=== PATIENT | female | born 1945 | race Caucasian/White ===

== ENCOUNTER 2016-11-28 10:06 | Day surgery (SDC) | payer OTHER ==
[~2016-11-28 10:06] MED LIST: TETRACAINE 0.5% OPHTH 1 DOSE AFFEYE ONE; VIGAMOX 0.5% OPHTH 1 DOSE AFFEYE ONE
[2016-11-28] MEDS ORDERED: VIGAMOX 0.5% OPHTH 1 DOSE AFFEYE ONE ×3 (10:10→13:59)
[2016-11-28] MEDS ORDERED: PROLENSA OPHTH 1 DOSE AFFEYE ONE (10:16)
[2016-11-28] MEDS ORDERED: ALPHAGAN-P OPHTH 1 DOSE AFFEYE ONE (10:17)
[2016-11-28] MEDS ORDERED: AK-DILATE 2.5% OPHTH 1 DOSE OP ONE ×3 (10:18→10:20)
[2016-11-28] MEDS ORDERED: CYCLOGYL 1% OPHTH 1 DOSE OP ONE ×3 (10:18→10:20)
[2016-11-28] MEDS ORDERED: MYDRIACIL OPHTH 1 DOSE AFFEYE ONE ×3 (10:18→10:20)
[2016-11-28] MEDS ORDERED: NS 500 ML IV 500 ML IV ONE (10:34)
[2016-11-28] MEDS ORDERED: TETRACAINE 0.5% OPHTH 1 DOSE AFFEYE ONE (13:40)
[2016-11-28] MEDS ORDERED: BETADINE OPHTH SOLN 5% EACHEYE ONE (13:40)
[2016-11-28] MEDS ORDERED: XYLOCAINE-MPF 1% IJ ONE (13:44)
[2016-11-28] MEDS ORDERED: BSS OPHTH (PLAIN) 500 ML with VANCOMYCIN HCL 500 MG VIAL 25 MG, ADRENALINE CHL INJ 1 MG IR ONE ×3 (13:44)
[2016-11-28] MEDS ORDERED: DUOVISC IO ONE (13:44)
[2016-11-28] MEDS ORDERED: ADRENALINE CHL INJ IJ ONE (13:44)
[2016-11-28 16:27] VITALS: BP 157/79
== END 2016-11-28 14:30 | disposition home or self-care (01) ==
LOC: SURG1 10:06
PROVIDERS: ATTEND Ophthalmology
PROC: 08RK3JZ Replacement of Left Lens with Synthetic Substitute, Percutaneous Approach (ICD-10-PCS; principal; 2016-11-28 20:15)
PROC: 08DK3ZZ Extraction of Left Lens, Percutaneous Approach (ICD-10-PCS; principal; 2016-11-28 20:15)
DX: H25.12 Age-related nuclear cataract, left eye (principal); H25.012 Cortical age-related cataract, left eye; H25.042 Posterior subcapsular polar age-related cataract, left eye; H52.222 Regular astigmatism, left eye
CPT/HCPCS: 99100; A9270; A4217; J0170; J3370

== ENCOUNTER 2016-12-12 07:43 | Day surgery (SDC) | payer OTHER ==
[2016-12-12] MEDS ORDERED: NS 500 ML IV 500 ML IV ONE (08:24)
[2016-12-12] MEDS ORDERED: TETRACAINE 0.5% OPHTH 1 DOSE AFFEYE ONE ×2 (08:30→10:56)
[2016-12-12] MEDS ORDERED: CYCLOGYL 1% OPHTH 1 DOSE OP ONE ×4 (08:30→08:42)
[2016-12-12] MEDS ORDERED: AK-DILATE 2.5% OPHTH 1 DOSE OP ONE ×4 (08:30→08:42)
[2016-12-12] MEDS ORDERED: MYDRIACIL OPHTH 1 DOSE AFFEYE ONE ×4 (08:30→08:42)
[2016-12-12] MEDS ORDERED: VIGAMOX 0.5% OPHTH 1 DOSE AFFEYE ONE ×5 (08:32→11:32)
[2016-12-12] MEDS ORDERED: PROLENSA OPHTH 1 DOSE AFFEYE ONE (08:35)
[2016-12-12] MEDS ORDERED: ALPHAGAN-P OPHTH 1 DOSE AFFEYE ONE (08:37)
[2016-12-12] MEDS ORDERED: DIAMOX PO ONE (10:36)
[2016-12-12] MEDS ORDERED: BETADINE OPHTH SOLN 5% EACHEYE ONE (10:56)
[2016-12-12] MEDS ORDERED: BSS OPHTH (PLAIN) 500 ML with VANCOMYCIN HCL 500 MG VIAL 25 MG, ADRENALINE CHL INJ 1 MG IR ONE ×3 (11:12)
[2016-12-12] MEDS ORDERED: XYLOCAINE-MPF 1% IJ ONE (11:12)
[2016-12-12] MEDS ORDERED: DUOVISC IO ONE (11:12)
[2016-12-12] MEDS ORDERED: ADRENALINE CHL INJ IJ ONE (11:12)
[2016-12-12] MEDS ORDERED: VISCOAT 0.5 ML IO ONE (11:25)
[2016-12-12 11:56] VITALS: BP 146/72
== END 2016-12-12 12:00 | disposition home or self-care (01) ==
LOC: SURG1 07:43
PROVIDERS: ATTEND Ophthalmology
PROC: 08DJ3ZZ Extraction of Right Lens, Percutaneous Approach (ICD-10-PCS; principal; 2016-12-12 10:45)
PROC: 08RJ3JZ Replacement of Right Lens with Synthetic Substitute, Percutaneous Approach (ICD-10-PCS; principal; 2016-12-12 10:45)
DX: H25.11 Age-related nuclear cataract, right eye (principal); H25.041 Posterior subcapsular polar age-related cataract, right eye; H52.221 Regular astigmatism, right eye
CPT/HCPCS: 99100; A9270; A4217; J0170; J3370

== ENCOUNTER 2017-11-05 12:30 | Inpatient (IN) | payer OTHER ==
[2017-11-05] MEDS ORDERED: TUSSIONEX PENNKINETIC SUSP PO PRN (13:36)
[2017-11-05] MEDS ORDERED: DUONEB 0.5 MG/3 MG ONE (13:37)
[2017-11-05] MEDS: DUONEB 0.5 MG/3 MG NEB SCH ×3 (13:45→20:28)
[2017-11-05] MEDS ORDERED: SALINE 3% 15 ML NEB TX NEB ONE (13:46)
--- NOTE | 2017-11-05 14:32 | RAD ---
History: Pneumonia Study: PA and lateral chest Comparison: CT chest dated December 02, 2015 Findings: The heart size is normal with intact pacemaker wire leads via the left subclavian vein. The lungs appear clear. There is no effusion or atelectasis or consolidation. Impression: No evidence for active cardiopulmonary disease Reported By:
[2017-11-05 14:33] LABS: BASOPHILS % (AUTO) 0.6 % (0.2-1.0); EOSINOPHILS % (AUTO) 0.1 % (0.9-2.9); HEMATOCRIT 42.8 % (36.0-47.0); HEMOGLOBIN 14.9 g/dL (12.0-16.0); LYMPHOCYTES # (AUTO) 2.3 X10^3/uL (1.3-2.9); LYMPHOCYTES % (AUTO) 34.7 % (21.0-51.0); MEAN CORPUSCULAR HGB CONC 34.8 g/dL (33.0-35.0); MEAN CORPUSCULAR VOLUME 80.5 fL (80.0-100.0); MEAN PLATELET VOLUME 9.6 fL (7.4-11.0); MONOCYTES # (AUTO) 0.7 x10^3/uL (0.3-0.8); MONOCYTES % (AUTO) 11.1 % (0.0-13.0); NEUTROPHILS # (AUTO) 3.6 x10^3/uL (2.2-4.8); NEUTROPHILS % (AUTO) 53.5 % (42.0-75.0); PLATELET COUNT 219 X10^3/uL (150.0-450.0); RED BLOOD COUNT 5.32 X10^6/uL (3.5-5.4); RED CELL DISTRIBUTION WIDTH 14.3 % (11.6-16.5); WHITE BLOOD COUNT 6.7 X10^3/uL (3.6-10.0)
[2017-11-05 14:51] LABS: ALANINE AMINOTRANSFERASE 25 Units/L (12-78); ALBUMIN 3.9 g/dL (3.4-5.0); ALKALINE PHOSPHATASE 69 Units/L (46-116); ASPARTATE AMINO TRANSFERASE 30 Units/L (15-37); BLOOD UREA NITROGEN 15 mg/dL (7-18); CALCIUM 8.5 mg/dL (8.5-10.1); CARBON DIOXIDE 30.2 mmol/L (21-32); CHLORIDE 98 mmol/L (98-107); COR NA(FOR HYPERGLY) 137 mmol/L (136-145); CREATININE 0.91 mg/dL (0.55-1.02); SODIUM 137 mmol/L (136-145); TOTAL PROTEIN 7.9 g/dL (6.4-8.2); eGFR BLACK RACES > 60 (>60); eGFR NON BLACK RACES > 60 (>60)
[2017-11-05] MEDS ORDERED: K-LYTE EFFERVESCENT PO PRN (15:00)
[2017-11-05] MEDS ORDERED: POTASSIUM CHL 40 MEQ/NS 0.45% 500 ML IV PRN (15:00)
[2017-11-05] MEDS ORDERED: K-RIDER 10 MEQ/NS 100 ML 10 MEQ/100 ML BAG IV PRN (15:00)
[2017-11-05] MEDS ORDERED: MAGNESIUM SULFATE 1 GM/100 mL PREMIX 1 GM/100 ML BAG IV PRN (15:00)
[2017-11-05] MEDS ORDERED: MAG-OX TAB PO PRN (15:00)
[2017-11-05] MEDS ORDERED: POTASSIUM CHL 60 MEQ/NS 0.45% 500 ML IV PRN (15:00)
[2017-11-05] MEDS ORDERED: NS 1/2 1000 ML IV 1,000 ML IV ONE (15:19)
[2017-11-05] MEDS: NS 1/2 1000 ML IV 1,000 ML IV SCH (15:31)
[2017-11-05] MEDS: LEVAQUIN PREMIX IV 750 MG 750 MG/150 ML BAG IV SCH (15:32)
[2017-11-05] MEDS: ROBITUSSIN DM PO SCH ×3 (15:32→21:00)
[2017-11-05 17:22] VITALS: BMI 21.7
[2017-11-05] MEDS: NORVASC TAB 10 MG PO SCH (17:25)
[2017-11-05] MEDS: ZOFRAN INJ 4 MG VIAL IVP PRN (18:05)
[2017-11-05] MEDS: TYLENOL 325 MG TAB PO PRN (18:06)
[2017-11-05] MEDS: POTASSIUM CHLORIDE LIQ 20 MEQ UDC PO PRN ×2 (20:23→22:25)
[2017-11-05] MEDS: ZANTAC PO SCH (21:00)
[2017-11-06] MEDS: DUONEB 0.5 MG/3 MG NEB SCH ×6 (00:47→23:38)
[2017-11-06] MEDS: TYLENOL 325 MG TAB PO PRN ×3 (02:11→20:28)
[2017-11-06] MEDS: NS 1/2 1000 ML IV 1,000 ML IV SCH ×2 (04:00→17:12)
[2017-11-06] MEDS ORDERED: NS 1/2 1000 ML IV 1,000 ML IV ONE ×2 (04:05→18:56)
[2017-11-06 05:45] LABS: BASOPHILS % (AUTO) 0.3 % (0.2-1.0); EOSINOPHILS % (AUTO) 0.1 % (0.9-2.9); HEMATOCRIT 37.2 % (36.0-47.0); HEMOGLOBIN 13.2 g/dL (12.0-16.0); LYMPHOCYTES # (AUTO) 1.1 X10^3/uL (1.3-2.9); MEAN CORPUSCULAR HEMOGLOBIN 28.5 pg (27.0-34.0); MEAN CORPUSCULAR HGB CONC 35.4 g/dL (33.0-35.0); MEAN CORPUSCULAR VOLUME 80.5 fL (80.0-100.0); MEAN PLATELET VOLUME 9.6 fL (7.4-11.0); MONOCYTES # (AUTO) 0.5 x10^3/uL (0.3-0.8); MONOCYTES % (AUTO) 13.1 % (0.0-13.0); NEUTROPHILS # (AUTO) 2.5 x10^3/uL (2.2-4.8); NEUTROPHILS % (AUTO) 59.5 % (42.0-75.0); PLATELET COUNT 184 X10^3/uL (150.0-450.0); RED BLOOD COUNT 4.63 X10^6/uL (3.5-5.4); RED CELL DISTRIBUTION WIDTH 14.1 % (11.6-16.5); WHITE BLOOD COUNT 4.1 X10^3/uL (3.6-10.0)
[2017-11-06 05:49] LABS: ALANINE AMINOTRANSFERASE 45 Units/L (12-78); ALBUMIN 3.1 g/dL (3.4-5.0); ALKALINE PHOSPHATASE 55 Units/L (46-116); ASPARTATE AMINO TRANSFERASE 34 Units/L (15-37); BLOOD UREA NITROGEN 10 mg/dL (7-18); CALCIUM 7.9 mg/dL (8.5-10.1); CARBON DIOXIDE 28.2 mmol/L (21-32); CHLORIDE 104 mmol/L (98-107); COR CA(FOR HYPOALB) 8.6 mg/dL (8.5-10.1); COR NA(FOR HYPERGLY) 141 mmol/L (136-145); SODIUM 140 mmol/L (136-145); TOTAL PROTEIN 6.6 g/dL (6.4-8.2); eGFR BLACK RACES > 60 (>60); eGFR NON BLACK RACES > 60 (>60)
--- NOTE | 2017-11-06 06:32 | RAD ---
HISTORY: Follow-up pneumonia Study: Chest AP portable Comparison: 11/05/2017 Findings: There is a pacemaker present on the left obscuring a portion of the left mid lung. The heart is mildl y enlarged. No congestive heart failure is noted. The aorta is calcified and mildly ectatic. The lung freitas are clear. No pleural effusions are identified. The bony thorax is unremarkable. IMPRESSION: Mild cardiomegaly without congestive heart failure No infiltrates Reported By:
--- NOTE | 2017-11-06 09:55 | DR.UPDATE ---
H&P Update History and Physical Update: WAS SEEN IN THE OFFICE ON 11/05/17. A H&P WAS COMPLETED PRIOR TO ADMISSION. PATIENT HAS BEEN SEEN AND EXAMINED WITH NO CHANGES NOTED TO H&P. Changes noted: NO Yes with the following:
[2017-11-06] MEDS: ROBITUSSIN DM PO SCH ×4 (10:14→20:27)
[2017-11-06] MEDS: NORVASC TAB 10 MG PO SCH (10:14)
[2017-11-06] MEDS: LEVAQUIN PREMIX IV 750 MG 750 MG/150 ML BAG IV SCH (10:14)
[2017-11-06] MEDS: ZOFRAN INJ 4 MG VIAL IVP PRN (12:17)
[2017-11-06] MEDS: HYDROCHLOROTHIAZIDE 25 MG TAB PO SCH (12:20)
[2017-11-06] MEDS: PROTONIX TAB 40 MG PO SCH (12:20)
--- NOTE | 2017-11-06 12:34 | PCM.PROG ---
Progress Note - Progress Note for Day of Date: 11/06/17 - Subjective Subjective: WAS ADMITTED YESTERDAY AND IS BEING TREATED FOR BRONCHOPNEUMONIA. TODAY, SHE IS ALERT AND ORIENTED, LYING IN BED ON MORNING ROUNDS. SHE CONTINUES WITH COMPLAINTS OF NON-PRODUCTIVE COUGH AND SHORTNESS OF BREATH. ON EXAMINATION, HEART IS REGULAR IN RATE AND RHYTHM. BILATERAL LUNGS ARE NOTED WITH SCATTERED WHEEZING. SHE IS CURRENTLY UTILIZING NASAL CANNULA AT 2L/MIN. ABDOMEN IS ROUND, SOFT, AND NON-TENDER WITH NORMAL BOWEL SOUNDS NOTED IN ALL QUADRNTS. HER VITALS THIS MORNING ARE 97.6-80-18-96%-133/72. LABS WERE OBTAINED THIS MORNING. POTASSIUM IS 3.2, OTHERWISE, SHE IS HEMODYNAMICALLY STABLE. A CHEST XRAY WAS OBTAINED THIS MORNING AND REPORTS MILD CARDIOMEGALY WITHOUT CONGESTIVE HEART FAILURE. NO INFILRATES. TODAY, WE WILL CONTINUE WITH CURRENT PLAN OF CARE WITH IV ANTIBIOTICS AND RESPIRATORY TREATMENTS. OTHERWISE, WE WILL FOLLOW UP WITH AM LABS AND CHEST XRAY AND CONTINUE TO MONITOR PATIENT. - Past Medical Family Social History Past Med/Fam/Surg Hx: No changes since H&P Allergies: Allergies cefdinir [From Omnicef] Allergy (Verified 11/05/17 12:34) sulfamethoxazole [From Bactrim] Allergy (Verified 11/05/17 12:34) trimethoprim [From Bactrim] Allergy (Verified 11/05/17 12:34) - Review of Systems ROS: No change since H&P - Vital Signs and I&O's Vital Signs: Temperature 97.6 F Pulse Rate [Brachial] 80 Pulse Rate 83 Respiratory Rate 18 Blood Pressure [Right Arm] 133/72 Blood Pressure 146/72 O2 Sat by Pulse Oximetry 97 Intake and Output: Intake & Output 11/04/17 11/05/17 11/06/17 11/07/17 11:59 11:59 11:59 11:59 Intake Total 1875 Balance 1875 - Physical Exam Oriented: Normal Eyes: Normal Ear: Normal Nose: Normal Throat: Normal Respiratory: Right, Left, Generalized, Wheezes Cardiovascular: Normal. negative: S3, S4, Murmur : Normal Auscultation: Bowel Sounds: Normal Palpation: Normal Tenderness: Normal Skin: Normal Musculoskeletal: Normal Psychiatric: Normal Mood Description: Calm Affect: Normal Speech Pattern: Clear, Appropriate - Laboratory and Diagnostics Result Diagrams: 11/06/17 04:05 11/06/17 08:42 Labs: Laboratory WBC 4.1 X10^3/uL (3.6-10.0) 11/06/17 04:05 RBC 4.63 X10^6/uL (3.5-5.4) 11/06/17 04:05 Hgb 13.2 g/dL (12.0-16.0) 11/06/17 04:05 Hct 37.2 % (36.0-47.0) 11/06/17 04:05 MCV 80.5 fL (80.0-100.0) 11/06/17 04:05 MCH 28.5 pg (27.0-34.0) 11/06/17 04:05 MCHC 35.4 g/dL (33.0-35.0) H 11/06/17 04:05 RDW 14.1 % (11.6-16.5) 11/06/17 04:05 Plt Count 184 X10^3/uL (150.0-450.0) 11/06/17 04:05 MPV 9.6 fL (7.4-11.0) 11/06/17 04:05 Neut % 59.5 % (42.0-75.0) 11/06/17 04:05 Lymph % 27.0 % (21.0-51.0) 11/06/17 04:05 [place] % 13.1 % (0.0-13.0) H 11/06/17 04:05 Eos % 0.1 % (0.9-2.9) L 11/06/17 04:05 Baso % 0.3 % (0.2-1.0) 11/06/17 04:05 Neut # 2.5 x10^3/uL (2.2-4.8) 11/06/17 04:05 Lymph # 1.1 X10^3/uL (1.3-2.9) L 11/06/17 04:05 [place] # 0.5 x10^3/uL (0.3-0.8) 11/06/17 04:05 Eos # 0.0 x10^3/uL (0.0-0.2) 11/06/17 04:05 Baso # 0.0 X10^3/uL (0.0-0.1) 11/06/17 04:05 Absolute Nucleated RBC 0.3 /100WBC 11/06/17 04:05 Sodium 140 mmol/L (136-145) 11/06/17 05:05 Corrected Sodium 141 mmol/L (136-145) 11/06/17 05:05 Potassium 3.8 mmol/L (3.5-5.1) 11/06/17 08:42 Chloride 104 mmol/L (98-107) 11/06/17 05:05 Carbon Dioxide 28.2 mmol/L (21-32) 11/06/17 05:05 BUN 10 mg/dL (7-18) 11/06/17 05:05 Creatinine 0.80 mg/dL (0.55-1.02) 11/06/17 05:05 Est GFR (MDRD) Af Amer > 60 (>60) 11/06/17 05:05 Est GFR (MDRD) Non-Af > 60 (>60) 11/06/17 05:05 Glucose 132 mg/dL (65-99) H 11/06/17 05:05 Calcium 7.9 mg/dL (8.5-10.1) L 11/06/17 05:05 Corrected Calcium 8.6 mg/dL (8.5-10.1) 11/06/17 05:05 Magnesium 1.9 mg/dL (1.7-2.9) 11/05/17 14:10 Total Bilirubin 0.30 mg/dL (0.2-1.0) 11/06/17 05:05 AST 34 Units/L (15-37) 11/06/17 05:05 ALT 45 Units/L (12-78) 11/06/17 05:05 Alkaline Phosphatase 55 Units/L (46-116) 11/06/17 05:05 Total Protein 6.6 g/dL (6.4-8.2) 11/06/17 05:05 Albumin 3.1 g/dL (3.4-5.0) L 11/06/17 05:05 Globulin 3.5 g/dL (2.5-4.5) 11/06/17 05:05 Albumin/Globulin Ratio 0.9 Ratio (1.1-2.1) L 11/06/17 05:05 - Plan (1) Bronchopneumonia Status: Acute Plan: CONTINUE LEVAQUIN, CONTINUE RESPIRATORY TREATMENTS AND SUPPLEMENTAL OXYGEN , CONTINUE TO MONITOR
[2017-11-06] MEDS: ZANTAC PO SCH (20:27)
[2017-11-07] MEDS: DUONEB 0.5 MG/3 MG NEB SCH ×5 (01:20→18:33)
[2017-11-07] MEDS ORDERED: NS 1/2 1000 ML IV 1,000 ML IV ONE ×2 (04:26→22:09)
[2017-11-07 06:10] LABS: BASOPHILS % (AUTO) 0.4 % (0.2-1.0); EOSINOPHILS % (AUTO) 1.1 % (0.9-2.9); HEMATOCRIT 38.3 % (36.0-47.0); HEMOGLOBIN 13.3 g/dL (12.0-16.0); LYMPHOCYTES # (AUTO) 1.2 X10^3/uL (1.3-2.9); LYMPHOCYTES % (AUTO) 34.8 % (21.0-51.0); MEAN CORPUSCULAR HGB CONC 34.8 g/dL (33.0-35.0); MEAN CORPUSCULAR VOLUME 80.4 fL (80.0-100.0); MEAN PLATELET VOLUME 9.6 fL (7.4-11.0); MONOCYTES # (AUTO) 0.4 x10^3/uL (0.3-0.8); MONOCYTES % (AUTO) 13.2 % (0.0-13.0); NEUTROPHILS # (AUTO) 1.7 x10^3/uL (2.2-4.8); NEUTROPHILS % (AUTO) 50.5 % (42.0-75.0); PLATELET COUNT 157 X10^3/uL (150.0-450.0); RED BLOOD COUNT 4.77 X10^6/uL (3.5-5.4); RED CELL DISTRIBUTION WIDTH 14.3 % (11.6-16.5); WHITE BLOOD COUNT 3.4 X10^3/uL (3.6-10.0)
[2017-11-07 06:38] LABS: ALANINE AMINOTRANSFERASE 44 Units/L (12-78); ALBUMIN 3.1 g/dL (3.4-5.0); ALKALINE PHOSPHATASE 58 Units/L (46-116); ASPARTATE AMINO TRANSFERASE 29 Units/L (15-37); BLOOD UREA NITROGEN 10 mg/dL (7-18); CALCIUM 8.2 mg/dL (8.5-10.1); CARBON DIOXIDE 29.4 mmol/L (21-32); CHLORIDE 104 mmol/L (98-107); COR CA(FOR HYPOALB) 8.9 mg/dL (8.5-10.1); CREATININE 0.77 mg/dL (0.55-1.02); SODIUM 142 mmol/L (136-145); TOTAL PROTEIN 6.5 g/dL (6.4-8.2); eGFR BLACK RACES > 60 (>60); eGFR NON BLACK RACES > 60 (>60)
--- NOTE | 2017-11-07 07:13 | RAD ---
AP chest Indication: Follow-up pneumonia. Comparison: 11/06/2017. Findings: Trachea is midline. Heart size and borderline enlarged, unchanged. Stable positioning of le ft chest wall pacemaker. Chronic interstitial lung changes persist. There is no focal airspace opacit y, pleural effusion or pneumothorax. No acute osseous abnormality. Impression: Chronic interstitial lung changes without acute airspace disease or CHF. Reported By:
[2017-11-07] MEDS: TYLENOL 325 MG TAB PO PRN ×2 (07:59→17:29)
[2017-11-07] MEDS: ROBITUSSIN DM PO SCH ×4 (08:01→20:30)
[2017-11-07] MEDS: NS 1/2 1000 ML IV 1,000 ML IV SCH (08:01)
[2017-11-07] MEDS: NORVASC TAB 10 MG PO SCH (08:01)
[2017-11-07] MEDS: HYDROCHLOROTHIAZIDE 25 MG TAB PO SCH (08:01)
[2017-11-07] MEDS: LEVAQUIN PREMIX IV 750 MG 750 MG/150 ML BAG IV SCH (08:01)
[2017-11-07] MEDS: PROTONIX TAB 40 MG PO SCH (08:01)
[2017-11-07] MEDS ORDERED: PERCOCET TAB 5/325 MG PO PRN (10:15)
[2017-11-07] MEDS: TAMIFLU PO SCH ×2 (11:57→20:29)
[2017-11-07] MEDS: ZANTAC PO SCH (20:29)
[2017-11-08] MEDS: DUONEB 0.5 MG/3 MG NEB SCH ×5 (01:20→12:22)
[2017-11-08] MEDS: ZOFRAN INJ 4 MG VIAL IVP PRN (06:05)
[2017-11-08 06:14] LABS: BASOPHILS % (AUTO) 0.4 % (0.2-1.0); EOSINOPHILS # (AUTO) 0.1 x10^3/uL (0.0-0.2); EOSINOPHILS % (AUTO) 1.6 % (0.9-2.9); HEMATOCRIT 36.8 % (36.0-47.0); HEMOGLOBIN 12.8 g/dL (12.0-16.0); LYMPHOCYTES # (AUTO) 1.4 X10^3/uL (1.3-2.9); LYMPHOCYTES % (AUTO) 36.5 % (21.0-51.0); MEAN CORPUSCULAR HGB CONC 34.8 g/dL (33.0-35.0); MEAN CORPUSCULAR VOLUME 80.4 fL (80.0-100.0); MONOCYTES # (AUTO) 0.4 x10^3/uL (0.3-0.8); NEUTROPHILS % (AUTO) 51.5 % (42.0-75.0); PLATELET COUNT 180 X10^3/uL (150.0-450.0); RED BLOOD COUNT 4.58 X10^6/uL (3.5-5.4); RED CELL DISTRIBUTION WIDTH 14.1 % (11.6-16.5); WHITE BLOOD COUNT 3.9 X10^3/uL (3.6-10.0)
[2017-11-08 06:38] LABS: ALANINE AMINOTRANSFERASE 47 Units/L (12-78); ALBUMIN 3.1 g/dL (3.4-5.0); ALKALINE PHOSPHATASE 67 Units/L (46-116); ASPARTATE AMINO TRANSFERASE 30 Units/L (15-37); BLOOD UREA NITROGEN 10 mg/dL (7-18); CALCIUM 8.2 mg/dL (8.5-10.1); CARBON DIOXIDE 28.7 mmol/L (21-32); CHLORIDE 101 mmol/L (98-107); COR CA(FOR HYPOALB) 8.9 mg/dL (8.5-10.1); CREATININE 0.78 mg/dL (0.55-1.02); SODIUM 140 mmol/L (136-145); TOTAL PROTEIN 6.5 g/dL (6.4-8.2); eGFR BLACK RACES > 60 (>60); eGFR NON BLACK RACES > 60 (>60)
--- NOTE | 2017-11-08 06:59 | RAD ---
HISTORY: Follow-up pneumonia Study: Chest AP portable Comparison: 11/07/2017 Findings: There is a pacemaker present on the left obscuring a portion of the left mid lung. The heart is withi n normal limits in size. The julia are normal. The aorta is calcified. The lungs are free of acute faisal eolar infiltrates. No pleural effusions are identified. Minimal interstitial lung disease is present. IMPRESSION: No acute alveolar infiltrates Minimal interstitial lung disease, stable Reported By:
[2017-11-08] MEDS: PROTONIX TAB 40 MG PO SCH (10:05)
[2017-11-08] MEDS: ROBITUSSIN DM PO SCH ×2 (10:05→14:30)
[2017-11-08] MEDS: HYDROCHLOROTHIAZIDE 25 MG TAB PO SCH (10:05)
[2017-11-08] MEDS: POTASSIUM CHLORIDE LIQ 20 MEQ UDC PO PRN (10:05)
[2017-11-08] MEDS: TAMIFLU PO SCH (10:05)
[2017-11-08] MEDS: NORVASC TAB 10 MG PO SCH (10:05)
[2017-11-08] MEDS: LEVAQUIN PREMIX IV 750 MG 750 MG/150 ML BAG IV SCH (10:06)
[2017-11-08 16:14] VITALS: BP 119/69
== END 2017-11-08 15:25 | disposition home or self-care (01) | DRG 195 ==
LOC: ICU 12:30 → UNDOADMIN 12:30 → ICU 13:16 → MED/SURG 11-06 08:08 → OBS 11-07 16:12 → MED/SURG 11-07 16:14
PROVIDERS: ADMIT Internal Medicine; ATTEND Internal Medicine
DX: J18.0 Bronchopneumonia, unspecified organism (principal); J10.1 Influenza due to other identified influenza virus with other respiratory manifestations; R50.9 Fever, unspecified; R06.02 Shortness of breath; I51.7 Cardiomegaly
CPT/HCPCS: 36415; 71045; 71046; 80053; 83735; 84132; 85025; 87040; 87502; 94640; A4222; G9035; J1956; J2405; J7620

== ENCOUNTER 2019-01-09 13:59 | Observation (INO) ==
[2019-01-09] MEDS ORDERED: NS 1000 ML 1,000 ML ONE (15:42)
[2019-01-09 16:23] VITALS: BMI 20.7
[2019-01-09] MEDS: NS 1000 ML 1,000 ML IV SCH (16:25)
[2019-01-09] MEDS: PROTONIX TAB 40 MG PO SCH (16:34)
[2019-01-09] MEDS: NORVASC TAB 10 MG PO SCH (16:34)
[2019-01-09] MEDS: ASPIRIN EC 81 MG PO SCH (16:34)
[2019-01-09 16:35] LABS: BASOPHILS # (AUTO) 0.1 X10^3/uL (0.0-0.1); BASOPHILS % (AUTO) 0.8 % (0.2-1.0); EOSINOPHILS # (AUTO) 0.1 x10^3/uL (0.0-0.2); EOSINOPHILS % (AUTO) 1.5 % (0.9-2.9); HEMATOCRIT 39.9 % (36.0-47.0); HEMOGLOBIN 13.6 g/dL (12.0-16.0); LYMPHOCYTES # (AUTO) 1.6 X10^3/uL (1.3-2.9); LYMPHOCYTES % (AUTO) 17.5 % (21.0-51.0); MEAN CORPUSCULAR HEMOGLOBIN 27.6 pg (27.0-34.0); MEAN CORPUSCULAR VOLUME 81.1 fL (80.0-100.0); MONOCYTES # (AUTO) 0.5 x10^3/uL (0.3-0.8); MONOCYTES % (AUTO) 6.1 % (0.0-13.0); NEUTROPHILS # (AUTO) 6.6 x10^3/uL (2.2-4.8); NEUTROPHILS % (AUTO) 74.1 % (42.0-75.0); PLATELET COUNT 248 X10^3/uL (150.0-450.0); RED BLOOD COUNT 4.92 X10^6/uL (3.5-5.4); RED CELL DISTRIBUTION WIDTH 14.3 % (11.6-16.5); WHITE BLOOD COUNT 8.9 X10^3/uL (3.6-10.0)
[2019-01-09 17:06] LABS: ALANINE AMINOTRANSFERASE 24 Units/L (12-78); ALKALINE PHOSPHATASE 76 Units/L (46-116); ASPARTATE AMINO TRANSFERASE 18 Units/L (15-37); BLOOD UREA NITROGEN 17 mg/dL (7-18); CALCIUM 9.3 mg/dL (8.5-10.1); CARBON DIOXIDE 30.1 mmol/L (21-32); CHLORIDE 102 mmol/L (98-107); CKMB % 1.6 % (<4); CREATINE KINASE 61 Units/L (26-192); CREATINE KINASE MB < 1.0 ng/mL (0-4.0); CREATININE 0.74 mg/dL (0.55-1.02); SODIUM 141 mmol/L (136-145); TOTAL PROTEIN 7.3 g/dL (6.4-8.2); TROPONIN I < 0.02 ng/mL (0-1.5); eGFR NON BLACK RACES > 60 (>60)
[2019-01-09] MEDS ORDERED: NS 100 ML IV 100 ML ONE (17:14)
[2019-01-09] MEDS ORDERED: MICRO K EXTEN CAP 10 MEQ PO PRN ×2 (18:07→18:11)
[2019-01-09] MEDS ORDERED: POTASSIUM CHL 60 MEQ/NS 0.45% 500 ML IV PRN ×2 (18:07→18:11)
[2019-01-09] MEDS ORDERED: K-RIDER 10 MEQ/NS 100 ML 10 MEQ/100 ML BAG IV PRN ×2 (18:07→18:11)
[2019-01-09] MEDS ORDERED: POTASSIUM CHL 40 MEQ/NS 0.45% 500 ML IV PRN ×2 (18:07→18:11)
[2019-01-09] MEDS ORDERED: POTASSIUM CHLORIDE LIQ 20 MEQ UDC PO PRN ×2 (18:07→18:11)
[2019-01-09] MEDS ORDERED: KLOR-CON PO PRN ×2 (18:07→18:11)
[2019-01-09] MEDS ORDERED: K-DUR TAB 20 MEQ PO PRN (18:11)
--- NOTE | 2019-01-09 19:10 | CT ---
CT angiogram chest with contrast Indication: Chest pain and dyspnea Technique: Helical images through the chest after IV contrast. Coronal and sagittal reformats provided. MIP images provided Findings: Review of bone windows shows no destructive osseous lesion. Limited images through the upper abdomen shows no unexpected abnormality. Colonic diverticulosis noted. Chest: Aortic arch branch vessels are patent with scattered calcifications. Pulmonary artery bolus timing is adequate without large central or segmental pulmonary artery filling defect identified. There is no pneumothorax or effusion. No dense consolidation is seen. Minimal scarring in the lingula and lung bases noted. Heart size is prominent, with no mediastinal abnormality seen Impression: 1. No pulmonary embolus 2. Minimal chronic lung change and slightly prominent heart size with pacemaker leads as expected 3. Colonic diverticulosis Reported By:
[2019-01-09 20:19] LABS: CKMB % 1.5 % (<4); CREATINE KINASE 66 Units/L (26-192); CREATINE KINASE MB < 1.0 ng/mL (0-4.0); TROPONIN I < 0.02 ng/mL (0-1.5)
[2019-01-09] MEDS: K-DUR TAB 20 MEQ PO PRN (21:21)
[2019-01-09] MEDS: LIPITOR TAB 40 MG PO SCH (21:21)
[2019-01-09] MEDS: KLONOPIN TAB 1 MG PO SCH (21:21)
[2019-01-09] MEDS: MAGNESIUM SULFATE 1 GRAM/100 mL PREMIX 1 GM/100 ML BAG IV PRN (23:32)
[2019-01-09] MEDS ORDERED: TYLENOL 325 MG TAB PO PRN (23:36)
[2019-01-10 00:31] LABS: CKMB % 1.8 % (<4); CREATINE KINASE 60 Units/L (26-192); CREATINE KINASE MB 1.1 ng/mL (0-4.0); TROPONIN I < 0.02 ng/mL (0-1.5)
[2019-01-10] MEDS: MAGNESIUM SULFATE 1 GRAM/100 mL PREMIX 1 GM/100 ML BAG IV PRN (00:35)
[2019-01-10 05:20] LABS: BASOPHILS # (AUTO) 0.1 X10^3/uL (0.0-0.1); EOSINOPHILS # (AUTO) 0.2 x10^3/uL (0.0-0.2); EOSINOPHILS % (AUTO) 3.3 % (0.9-2.9); HEMATOCRIT 38.3 % (36.0-47.0); HEMOGLOBIN 13.1 g/dL (12.0-16.0); LYMPHOCYTES # (AUTO) 1.7 X10^3/uL (1.3-2.9); LYMPHOCYTES % (AUTO) 24.4 % (21.0-51.0); MEAN CORPUSCULAR HGB CONC 34.2 g/dL (33.0-35.0); MEAN CORPUSCULAR VOLUME 81.9 fL (80.0-100.0); MONOCYTES # (AUTO) 0.6 x10^3/uL (0.3-0.8); MONOCYTES % (AUTO) 8.7 % (0.0-13.0); NEUTROPHILS # (AUTO) 4.4 x10^3/uL (2.2-4.8); NEUTROPHILS % (AUTO) 62.6 % (42.0-75.0); PLATELET COUNT 242 X10^3/uL (150.0-450.0); RED BLOOD COUNT 4.68 X10^6/uL (3.5-5.4); RED CELL DISTRIBUTION WIDTH 14.2 % (11.6-16.5); WHITE BLOOD COUNT 7.1 X10^3/uL (3.6-10.0)
[2019-01-10 05:24] LABS: ALANINE AMINOTRANSFERASE 19 Units/L (12-78); ALBUMIN 3.3 g/dL (3.4-5.0); ALKALINE PHOSPHATASE 76 Units/L (46-116); ASPARTATE AMINO TRANSFERASE 13 Units/L (15-37); BLOOD UREA NITROGEN 13 mg/dL (7-18); CALCIUM 8.7 mg/dL (8.5-10.1); CARBON DIOXIDE 28.8 mmol/L (21-32); CHLORIDE 105 mmol/L (98-107); COR CA(FOR HYPOALB) 9.3 mg/dL (8.5-10.1); COR NA(FOR HYPERGLY) 143 mmol/L (136-145); MAGNESIUM 2.5 mg/dL (1.7-2.9); SODIUM 143 mmol/L (136-145); TOTAL PROTEIN 6.3 g/dL (6.4-8.2); eGFR NON BLACK RACES > 60 (>60)
[2019-01-10] MEDS: NS 1000 ML 1,000 ML IV SCH ×2 (06:12→21:36)
--- NOTE | 2019-01-10 07:04 | VAS ---
HISTORY: Left lower extremity edema Study: Left lower extremity venous Doppler Comparison: None Technique: Multiple grayscale sonographic images were obtained. Color duplex Doppler evaluation was performed. Findings: The left common femoral vein, superficial femoral vein, popliteal veins are patent demonstrating normal flow, compression, and augmentation. IMPRESSION: Exam negative for deep venous thrombosis left lower extremity Reported By:
[2019-01-10] MEDS: PROTONIX TAB 40 MG PO SCH ×2 (08:58→21:51)
[2019-01-10] MEDS: NORVASC TAB 10 MG PO SCH (08:59)
[2019-01-10] MEDS: ASPIRIN EC 81 MG PO SCH (08:59)
--- NOTE | 2019-01-10 20:00 | DR.H&P ---
H&P - History & Physical for Day of: H&P Date: 01/09/19 - Chief Complaint Chief Complaint: CHEST PAIN, EPIGASTRIC PAIN, SHOULDER PAIN, JAW PAIN - History of Present Illness History of Present Illness: WAS A DIRECT ADMISSION FROM OUR OFFICE. SHE PRESENTED WITH COMPLAINTS OF EPIGASTRIC PAIN AND CHEST PAIN THAT RADIATES TO THE SHOULDER AND JAW. SHE ALSO REPORTS SWELLING TO THE LEFT LEG AND ANKLE. [place] REPORTS TAKING AN ASPIRIN AT HOME WITHOUT IMPROVEMENT IN SYMPTOMS. ON ARRIVAL TO THE HOSPITAL, VITALS WERE 98.5-70-20-100%-129/66. LABS WERE OBTAINED. ABNORMAL LAB VALUES INCLUDE THE FOLLOWING: POTASSIUM 3.2, GLUCOSE 102. CARDIAC ENZYMES WITHIN NORMAL LIMITS. A CHEST CTA WAS OBTAINED AND REVEALED: No pulmonary embolus. Minimal chronic lung change and slightly prominent heart size with pacemaker leads as expected. Colonic diverticulosis. A LEFT LOWER EXTREMITY VENOUS DOPPLER WAS OBTAINED AND REVEALED: Exam negative for deep venous thrombosis left lower extremity. EKG WAS OBTAINED AND REVEALED: SINUS RHYTHM WITH HR 65. SHE WAS STARTED ON NORMAL SALINE AT 75ML/HR, POTASSIUM PROTOCOL, AND THE MAGNESIUM PROTOCOL. WE WILL OBTAIN SERIAL CARDIAC ENZYMES AND EKGS. WE PLAN TO FOLLOW UP WITH AM LABS AND CONTINUE TO MONITOR. - Past Medical History Past Medical History: Anxiety, GERD, Hypertension, PUD - Past Surgical History Surgical History: Hysterectomy, Ortho Surgery, Other - Family History Family Medical History: Cancer, Sudden Cardiac - Social History Does patient currently use any type of tobacco product: No Have you used tobacco products in the last 12 months: No Type of Tobacco Use: None Does any household member use tobacco: No Alcohol Use: None Drug Use: None - Medications Home Medications: cefdinir [From Omnicef] Allergy (Verified 11/05/17 12:34) sulfamethoxazole [From Bactrim] Allergy (Verified 11/05/17 12:34) trimethoprim [From Bactrim] Allergy (Verified 11/05/17 12:34) CONTINUE taking the following medications amlodipine 10 mg PO DAILY 01/09/19 [History] loratadine 10 mg PO DAILY 01/09/19 [History] montelukast 10 mg PO DAILY 01/09/19 [History] naphazoline-pheniramine [Opcon-A] 1 drp OPHTHALMIC (EYE) BID-QID PRN 01/09/19 [History] tobramycin-dexamethasone 1 drp OPHTHALMIC (EYE) TID 01/09/19 [History] - Physical Exam Vital Signs: Temperature 98.2 F Pulse Rate [Apical] 82 Respiratory Rate 19 Blood Pressure [Right Arm] 119/71 Blood Pressure 119/69 O2 Sat by Pulse Oximetry 98 - Allergies Allergies/Adverse Reactions: Allergies Allergy/AdvReac Type Severity Reaction Status Date / Time cefdinir [From Omnicef] Allergy Verified 11/05/17 12:34 sulfamethoxazole Allergy Verified 11/05/17 12:34 [From Bactrim] trimethoprim [From Bactrim] Allergy Verified 11/05/17 12:34
[2019-01-10] MEDS: KLONOPIN TAB 1 MG PO SCH (21:36)
[2019-01-10] MEDS: LIPITOR TAB 40 MG PO SCH (21:36)
[2019-01-11 06:20] LABS: BASOPHILS # (AUTO) 0.1 X10^3/uL (0.0-0.1); BASOPHILS % (AUTO) 1.1 % (0.2-1.0); EOSINOPHILS # (AUTO) 0.3 x10^3/uL (0.0-0.2); EOSINOPHILS % (AUTO) 4.1 % (0.9-2.9); HEMATOCRIT 38.8 % (36.0-47.0); HEMOGLOBIN 13.1 g/dL (12.0-16.0); LYMPHOCYTES # (AUTO) 1.5 X10^3/uL (1.3-2.9); LYMPHOCYTES % (AUTO) 24.2 % (21.0-51.0); MEAN CORPUSCULAR HEMOGLOBIN 27.7 pg (27.0-34.0); MEAN CORPUSCULAR HGB CONC 33.8 g/dL (33.0-35.0); MEAN CORPUSCULAR VOLUME 81.8 fL (80.0-100.0); MEAN PLATELET VOLUME 9.2 fL (7.4-11.0); MONOCYTES # (AUTO) 0.5 x10^3/uL (0.3-0.8); NEUTROPHILS # (AUTO) 3.9 x10^3/uL (2.2-4.8); NEUTROPHILS % (AUTO) 62.6 % (42.0-75.0); PLATELET COUNT 225 X10^3/uL (150.0-450.0); RED BLOOD COUNT 4.75 X10^6/uL (3.5-5.4); RED CELL DISTRIBUTION WIDTH 14.3 % (11.6-16.5); WHITE BLOOD COUNT 6.3 X10^3/uL (3.6-10.0)
[2019-01-11 06:39] LABS: ALANINE AMINOTRANSFERASE 16 Units/L (12-78); ALBUMIN 3.3 g/dL (3.4-5.0); ALKALINE PHOSPHATASE 82 Units/L (46-116); ASPARTATE AMINO TRANSFERASE 15 Units/L (15-37); BLOOD UREA NITROGEN 12 mg/dL (7-18); CALCIUM 8.9 mg/dL (8.5-10.1); CARBON DIOXIDE 24.8 mmol/L (21-32); CHLORIDE 108 mmol/L (98-107); COR CA(FOR HYPOALB) 9.5 mg/dL (8.5-10.1); SODIUM 143 mmol/L (136-145); TOTAL PROTEIN 6.4 g/dL (6.4-8.2); eGFR NON BLACK RACES > 60 (>60)
[2019-01-11] MEDS: PROTONIX TAB 40 MG PO SCH (08:24)
[2019-01-11] MEDS: ASPIRIN EC 81 MG PO SCH (08:24)
[2019-01-11] MEDS: NORVASC TAB 10 MG PO SCH (08:24)
[2019-01-11] MEDS: K-DUR TAB 20 MEQ PO PRN (08:25)
[2019-01-11 12:07] VITALS: BP 135/64
[2019-01-11] MEDS: NS 1000 ML 1,000 ML IV SCH (14:12)
== END 2019-01-11 14:35 | disposition home or self-care (01) ==
LOC: ICU
PROVIDERS: ADMIT Internal Medicine; ATTEND Internal Medicine
DX: R60.0 Localized edema; R06.02 Shortness of breath; R94.31 Abnormal electrocardiogram [ECG] [EKG]; R10.31 Right lower quadrant pain; R07.89 Other chest pain; Z95.0 Presence of cardiac pacemaker; M25.511 Pain in right shoulder
CPT/HCPCS: 36415; 71275; 80053; 82550; 82553; 83735; 84132; 84484; 85025; 93005; 93971; 96367; 96374; A4222; G0378; J3475; J3490; J7030; J7050